=== PATIENT | male | born 1940 | race Caucasian/White ===

== ENCOUNTER 2017-08-11 20:39 | Observation (INO) | payer MEDICARE, OTHER ==
[~2017-08-11] VITALS: Ht 175.3 cm; Wt 78.0 kg
--- NOTE | ~2017-08-11 | HP ---
History And Physical [facility] [id number] [place]. [address] NAME: FLORENCIO REID JR : 40 STATUS : ADM Marilynn PAT#: [id number] AGE: 76 ADM/REG DATE : 08/11/17 MR#: [id number] REPORT SERV DATE: 08/12/17 DICTATED BY: NIRU HORNE DATE: 08/11/17 REPORT STATUS : Draft TRANSCRIBED BY: MODL DATE: 08/11/17 DATE OF ADMISSION: 08/11/2017 CHIEF COMPLAINT: Loss of vision in right eye. HISTORY OF PRESENT ILLNESS: 76-year-old white male was driving yesterday when he lost his vision suddenly in his right eye. He could still see light, but nothing else. The vision slowly returned, this was painless. PAST MEDICAL HISTORY: Significant for some PVCs. PAST SURGICAL HISTORY: Cataract surgery and hernia surgery. SOCIAL HISTORY: He does not smoke, does not drink, worked in computers. Has 3 children. in December. ALLERGIES: NO KNOWN DRUG ALLERGIES. FAMILY HISTORY: Mom of heart attack and of congestive heart failure. Dad of stroke and had a cardiac bypass. MEDICATIONS AT HOME: Atenolol 25 mg daily and aspirin 81 mg daily. REVIEW OF SYSTEMS: CONSTITUTIONAL: No fever, sweats, or rigors eyes. EYES: He had lack of vision, but it was not blurred. He had visual acuity and loss. No glaucoma. He has had his cataracts taken care of. HEENT: No headache, hearing loss, or tinnitus. CARDIOVASCULAR: No chest pain, palpitations, or syncope. RESPIRATORY: No cough, wheezing, or pleuritic pain. GASTROINTESTINAL: No nausea, vomiting, hematemesis, or abdominal pain. MUSCULOSKELETAL: No arthralgia, arthritis, or back pain. INTEGUMENT: No rash or suspicious skin lesions. NEUROLOGIC: No memory loss, gait disturbance, or weakness. HEMATOLOGIC: No anemia, iron deficiency, or B12 deficiency. PSYCHIATRIC: No depression, bipolar, or anxiety. : No dysuria, hematuria, or nephrolithiasis. ENDOCRINE: No diabetes, thyroid disease. Cholesterol is unknown. PHYSICAL EXAMINATION: VITAL SIGNS: Blood pressure is 176/84, temperature 98.7, pulse 52, and respiration 20. CONSTITUTIONAL: Alert and appropriate. PSYCHIATRIC: Oriented x3. Memory intact. Affect appropriate. HEENT: Atraumatic, normocephalic. Oral palate without lesion. EYES: Pupils reactive, anicteric. NECK: No adenopathy. Supple. No thyromegaly or masses. History And Physical [address] [place]. [address] NAME: FLORENCIO REID JR : 40 STATUS : ADM Marilynn PAT#: [id number] AGE: 76 ADM/REG DATE : 08/11/17 MR#: [id number] REPORT SERV DATE: 08/12/17 DICTATED BY: NIRU HORNE DATE: 08/11/17 REPORT STATUS : Draft TRANSCRIBED BY: DEMETRIS DATE: 08/11/17 RESPIRATORY: Clear to percussion and auscultation. CARDIOVASCULAR: Regular rate and rhythm. No murmurs, gallops, or rubs. Distal pulse intact. No audible carotid or femoral bruits. ABDOMEN: Soft, nontender. No masses. SKIN: No rash or suspicious lesions. NEUROLOGIC: The patient moves all four extremities. Cranial nerves II through XII intact. LYMPHATIC: No adenopathy in the neck, axilla, or femoral region. MUSCULOSKELETAL: Range of motion intact in upper and lower extremities DATA: Head CT is unremarkable. White count 6.1, hemoglobin 14, and platelet 176. Sodium 141, potassium 4.1, BUN 18, creatinine 0.91, and glucose 80. EKG is sinus bradycardia with right bundle-branch block. IMPRESSION AND PLAN: 1. Amaurosis fugax in right eye/transient ischemic attack. We will initiate TIA workup. 2. Hypertension. We will allow permissive hypertension. NGM/MODL Niru Horne MD / [id number] CC: MD Manuel Mejia D.O.
--- NOTE | ~2017-08-11 | DS ---
Discharge Summary [facility] [id number] [place]. [address] NAME: FLORENCIO REID JR : 40 STATUS : DIS Marilynn PAT#: [id number] AGE: 76 ADM/REG DATE : 08/11/17 MR#: [id number] REPORT SERV DATE: 08/13/17 DICTATED BY: LALO STAPLETON DATE: 08/12/17 REPORT STATUS : Draft TRANSCRIBED BY: MODEvelyn DATE: 08/12/17 ADMISSION DATE: 08/11/2017 DISCHARGE DATE: 08/12/2017 DISCHARGE DIAGNOSES: 1. Amaurosis fugax. 2. Transient ischemic attack. 3. Premature ventricular contractions. 4. Hypertension. 5. Chronic shoulder pain. 6. Dyslipidemia. IMAGIN. CT brain without contrast impression, unremarkable noncontrasted CT. No acute intracranial pathology. 2. Chest x-ray impression, borderline heart size. No acute process. No prior exams. 3. MRI/MRA brain, head, and neck impression. a. Negative limited noncontrast MRA of the brain. b. Negative MRA exam of the [place]. 4. MRA of neck, negative MRA of the neck. HISTORY OF PRESENT ILLNESS: For detailed HPI, please make reference to Dr. Niru Alanis' dictation. In brief, this is a 76-year-old male with medical history significant for PVCs who presented to the emergency room department with complaints of transient loss of vision in the right eye. PHYSICAL EXAMINATION: VITAL SIGNS: On presentation, blood pressure was 176/84, temperature was 98.7, pulse was 52 beats per minute, respiratory rate was 20. EKG shows sinus bradycardia with right bundle-branch block and PVCs. Creatinine was 0.9, BUN was 18, potassium 4.1, sodium 141. Hemoglobin 14, WBC 6.1, and platelets 176. CT scan of the brain shows no acute infarction of cerebral hemorrhage. At the time of evaluation, the patient's vision has returned back to normal. An assessment of amaurosis fugax in the right eye and TIA were made in the ER. The patient was admitted to the Hospitalist Service. HOSPITAL COURSE: 1. TIA/amaurosis fugax. At the time of my evaluation, the patient's vision was normal. The patient had MRI of the brain that showed no acute infarct. MRA of head and neck shows no area of stenosis or aneurysms. The patient's case was continued on aspirin and statin for secondary prevention of CVA. The patient was advised to follow up with primary care physician. Discharge Summary [address] [place]. [address] NAME: FLORENCIO REID JR : 40 STATUS : DIS Marilynn PAT#: [id number] AGE: 76 ADM/REG DATE : 08/11/17 MR#: [id number] REPORT SERV DATE: 08/13/17 DICTATED BY: LALO STAPLETON DATE: 08/12/17 REPORT STATUS : Draft TRANSCRIBED BY: DEMETRIS DATE: 08/12/17 2. Hypertension. The patient's blood pressure was elevated in the 170s. Permissive hypertension was allowed for approximately 24 hours. The patient was restarted on home dose of atenolol and lisinopril was added to patient's blood pressure medications prior to discharge. The patient was advised to follow up with primary care physician within one week of discharge. 3. PVCs. The patient reports that he was diagnosed with PVCs several years ago, takes atenolol at bedtime. However, his pharmacist informed him that atenolol will soon no longer be covered by his primary insurance, hence he requested for atenolol to be changed. Metoprolol 25 mg XL at bedtime was subsequently prescribed. The patient will continue metoprolol and follow up with Cardiology as an outpatient. DISCHARGE DISPOSITION: Home. DISCHARGE FOLLOWUP: 1. Follow up with primary care physician as an outpatient. 2. Follow up with Cardiology as an outpatient. 3. Follow up with outpatient echocardiogram which has been ordered at the time of discharge. DISCHARGE ACTIVITIES: As tolerated. DISCHARGE MEDICATION: 1. Lisinopril 10 mg p.o. daily. 2. Aspirin 325 mg p.o. daily. 3. Lipitor 80 mg p.o. at bedtime. 4. Metoprolol-XL 25 mg p.o. at bedtime. DISCHARGE ACTIVITIES: As tolerated. Greater than 35 minutes was used to prepare this patient's discharge, reconcile medication, advised the patient on discharge plans and followup. MAUROO/MODL Lalo Stapleton MD / [id number] CC: MD Manuel Mejia D.O.
[2017-08-11 22:28] LABS: BASOPHILS 0.5 %; BASOPHILS ABSOLUTE 0.03 10/3/uL (0.0-0.16); EOSINOPHILS 3.8 %; EOSINOPHILS ABSOLUTE 0.23 10/3/uL (0.0-0.53); ER CBC TAT 0 Hrs 03 Mins; HEMATOCRIT 45.6 % (40.0-51.0); HEMOGLOBIN 14.9 g/dL (13.6-17.8); IMMATURE GRANULOCYTES 0.2 %; IMMATURE GRANULOCYTES ABSOLUTE 0.01 10/3/uL (0.0-0.11); LYMPHOCYTES 41.2 %; MEAN CORPUS HGB CONC 32.7 g/dL (32.0-36.0); MEAN CORPUSCULAR VOLUME 94.8 fL (80-100); MEAN PLATELET VOLUME 10.3 fL (9.2-13.0); MONOCYTES 7.7 %; MONOCYTES ABSOLUTE 0.47 10/3/uL (0.21-1.20); NEUTROPHILS 46.6 %; NEUTROPHILS ABSOLUTE 2.83 10/3/uL (2.02-8.40); PLATELET COUNT 176 10/3/uL (150-400); RBC DISTRIBUTION WIDTH 13.5 % (12.0-16.0); RED CELL COUNT 4.81 10/6/uL (4.7-6.1); WHITE BLOOD CELLS 6.1 10/3/uL (4.5-10.5)
[2017-08-11 22:29] LABS: MANUAL DIFF NO %
[2017-08-11 22:47] LABS: PARTIAL THROMBO TIME 28.6 SEC (22.5-37.2); PROTIME (NOT ORD) 13.5 SEC (12.0-14.5)
[2017-08-11 22:50] LABS: A/G RATIO 1.2 (0.7-1.9); ALBUMIN 3.9 G/DL (3.5-5.0); ALKALINE PHOSPHATASE 44 U/L (45-117); CALCIUM, SERUM 8.6 MG/DL (8.5-10.4); CHLORIDE, SERUM 105 MMOL/L (96-112); CO2 (CARBON DIOXIDE) 28 MMOL/L (24-34); CREATININE 0.91 MG/DL (0.70-1.30); GFR AFRICAN AMERICAN 95 ML/MIN (>=60); GFR NON AFRICAN AMERICAN 82 ML/MIN (>=60); GLOBULIN 3.2 G/DL (2.5-4.1); GLUCOSE, SERUM 80 MG/DL (60-99); POTASSIUM, SERUM 4.1 MMOL/L (3.5-5.3); SGOT(AST) 18 U/L (5-40); SGPT(ALT) 18 U/L (5-65); SODIUM, SERUM 141 MMOL/L (135-148); TOTAL BILIRUBIN 0.7 MG/DL (0-1.2); TOTAL PROTEIN 7.1 G/DL (6.0-8.5); TROPONIN I <0.02 NG/ML (<0.05)
[2017-08-11 22:52] LABS: BUN (BLOOD UREA NITROGEN) 18 MG/DL (6-23)
[2017-08-12] MEDS ORDERED: ASA5GR PO (00:16)
[2017-08-12] MEDS ORDERED: ATEN25 PO (00:16)
[2017-08-12] MEDS ORDERED: OS500+D PO (00:17)
[2017-08-12 04:04] LABS: CHOL/HDL RATIO(NOT ORDER) 2.8 (0-5); CHOLESTEROL 166 MG/DL (< 200); HDL CHOLESTEROL 60 MG/DL (> 39); LDL CHOLESTEROL 92 MG/DL (< 130); NON-HDL CHOLESTEROL 106 MG/DL (< 160); TRIGLYCERIDE 72 MG/DL (< 150)
[2017-08-12 07:52] LABS: CPK 72 U/L (0-200); TROPONIN I 0.03 NG/ML (<0.05)
[2017-08-12 07:53] LABS: CK-MB 1.5 NG/ML
[2017-08-12] MEDS ORDERED: IBU-200200 MG PO (10:45)
[2017-08-12] MEDS ORDERED: LIPITOR80 MG PO (15:12)
[2017-08-12] MEDS ORDERED: ZESTRIL10 MG PO (15:13)
[2017-08-12] MEDS ORDERED: TOPXL25 PO (15:14)
== END 2017-08-12 15:47 | disposition home or self-care (01) ==
LOC: ER 20:39 → CDU1 23:59 → CDU2 08-12 00:28
PROVIDERS: Emergency Medicine; Internal Medicine
DX: G45.3 Amaurosis fugax (principal); G45.9 Transient cerebral ischemic attack, unspecified; I49.3 Ventricular premature depolarization; I10 Essential (primary) hypertension; E78.5 Hyperlipidemia, unspecified; G89.29 Other chronic pain; M25.511 Pain in right shoulder; Z98.890 Other specified postprocedural states; Z79.899 Other long term (current) drug therapy; Z79.82 Long term (current) use of aspirin; Z98.49 Cataract extraction status, unspecified eye; Z82.49 Family history of ischemic heart disease and other diseases of the circulatory system
CPT/HCPCS: 70450; 70544; 70548; 70551-52; 71010; 80053; 80061; 82550; 82553; 82962; 83036; 84484; 85025; 85610; 85730; 93005; 96372; 99285; A9270-GY; A9577; G0378